=== PATIENT | female | born 1980 | race American Indian/Alaskan Native ===

== ENCOUNTER 2016-08-30 07:55 | Inpatient (IN) | payer MEDICAID ==
[2016-08-30 08:59] LABS: Basophils % (Auto) 0.5 % (0.0-1.8); Eosinophils % (Auto) 5.3 % (0.0-4.3); Hematocrit 36.3 % (30.3-42.9); Hemoglobin 12.3 gm/dl (10.1-14.3); Mean Corpuscular HGB Conc 34 % (30-34); Mean Corpuscular Hemoglobin 31 pg (28-32); Mean Corpuscular Volume 93 fl (79-97); Platelet Count 275 K/mm3 (140-440); Red Blood Count 3.92 M/mm3 (3.65-5.03); Red Cell Distribution Width 13.6 % (13.2-15.2); White Blood Count 10.2 K/mm3 (4.5-11.0)
--- NOTE | 2016-08-30 09:53 | Emergency Department Report ---
ED Shortness of Breath HPI - General Chief Complaint: Dyspnea/Respdistress Stated Complaint: CHEST PAIN/COLD/ Time Seen by Provider: 08/30/16 09:09 Source: patient Mode of arrival: Ambulatory Limitations: No Limitations - History of Present Illness Initial Comments: 35-year-old -[place] female presents to the emergency department complaining of shortness of breath. Patient states that she had a section approximately one week ago. For the past 2-3 days, she has been complaining of chest congestion and shortness of breath. She reports a nonproductive cough. Patient states that the swelling in her legs has not gone away since delivering the baby. There are no other complaints. MD Complaint: shortness of breath, cough -: Gradual, days(s) (3) Severity: mild Consistency: constant Improves With: oxygen Worsens With: nothing Associated Symptoms: denies other symptoms Treatments Prior to Arrival: none - Related Data Home Oxygen Therapy: No Home Medications Medication Instructions Recorded Confirmed Last Taken Vit-Fe Fumar-FA [ 1 tab PO QDAY 08/20/16 08/30/16 Unknown Vitamin] Previous Rx's Medication Instructions Recorded Last Taken Type Ibuprofen [Motrin 800 MG tab] 800 mg PO TID PRN #30 tablet 08/20/16 Unknown Rx oxyCODONE /ACETAMINOPHEN [Percocet 1 - 2 tab PO Q4HR PRN #30 tablet 08/20/16 Unknown Rx 5/325 mg] Allergies Allergy/AdvReac Type Severity Reaction Status Date / Time No Known Allergies Allergy Verified 08/13/16 19:22 ED Review of Systems ROS: Stated complaint: CHEST PAIN/COLD/ Other details as noted in HPI Comment: All other systems reviewed and negative Respiratory: cough, shortness of breath Cardiovascular: edema ED Past Medical Hx - Past Medical History Previous Medical History?: No Hx Hypertension: No Hx Congestive Heart Failure: No Hx Diabetes: No Hx Deep Vein Thrombosis: No Hx Renal Disease: No Hx Sickle Cell Disease: No Hx Seizures: No Hx Asthma: No Hx COPD: No Hx HIV: No - Surgical History Past Surgical History?: Yes Additional Surgical History: 08-20-16 - Family History Family history: no significant - Social History Smoking Status: Never Smoker Substance Use Type: Non Opiate Pain, Prescribed - Medications Home Medications: Home Medications Medication Instructions Recorded Confirmed Last Taken Type Ibuprofen [Motrin 800 MG tab] 800 mg PO TID PRN #30 tablet 08/20/16 08/30/16 Unknown Rx Vit-Fe Fumar-FA [ 1 tab PO QDAY 08/20/16 08/30/16 Unknown History Vitamin] oxyCODONE /ACETAMINOPHEN [Percocet 1 - 2 tab PO Q4HR PRN #30 tablet 08/20/16 Unknown Rx 5/325 mg] ED Physical Exam - General Limitations: No Limitations General appearance: alert, in no apparent distress - Head Head exam: Present: atraumatic, normocephalic - Eye Eye exam: Present: normal appearance, PERRL, EOMI - ENT ENT exam: Present: normal exam, normal orophraynx, mucous membranes moist - Neck Neck exam: Present: normal inspection, full ROM. Absent: tenderness - Respiratory Respiratory exam: Present: rales (bilateral posterior diffuse). Absent: respiratory distress - Cardiovascular Cardiovascular Exam: Present: regular rate, normal rhythm, normal heart sounds - GI/Abdominal GI/Abdominal exam: Present: soft, normal bowel sounds. Absent: distended, tenderness - Extremities Exam Extremities exam: Present: full ROM, other (bilateral 2+ nonpitting edema). Absent: tenderness - Back Exam Back exam: Present: normal inspection, full ROM. Absent: tenderness - Neurological Exam Neurological exam: Present: alert, oriented X3. Absent: motor sensory deficit - Skin Skin exam: Present: warm, dry, intact ED Course Vital Signs 08/30/16 08/30/16 08/30/16 08:23 09:56 09:57 Temperature 98.6 F 98.4 F Pulse Rate 67 60 Respiratory 24 24 Rate Blood Pressure 159/100 Blood Pressure 168/93 [Left] O2 Sat by Pulse 94 93 93 Oximetry 08/30/16 10:00 Temperature Pulse Rate 78 Respiratory 33 H Rate Blood Pressure Blood Pressure 169/101 [Left] O2 Sat by Pulse 95 Oximetry ED Medical Decision Making - Lab Data Result diagrams: 08/30/16 08:43 08/30/16 08:43 - EKG Data -: EKG Interpreted by Nc EKG shows normal: sinus rhythm, intervals, QRS complexes, ST-T waves Rate: normal - EKG Data When compared to previous EKG there are: previous EKG unavailable Interpretation: other (left axis deviation, no acute ischemic changes) - Radiology Data Radiology results: image reviewed interpreted by me: PA and lateral chest x-ray revealed bilateral patchy infiltrates consistent with pulmonary edema - Medical Decision Making Lab and imaging results reviewed and discussed with the patient. Patient remains tachypneic. I have spoken with Jeri Evans with [facility]. Patient is to be admitted by the hospitalist. - Differential Diagnosis URI, pneumonia, cardiomyopathy, PE Critical care attestation.: If time is entered above; I have spent that time in minutes in the direct care of this critically ill patient, excluding procedure time. ED Disposition Clinical Impression: cardiomyopathy Disposition: OP ADMITTED IP TO THIS HOSP Is pt being admited?: Yes Condition: Stable Time of Disposition: 11:11
[2016-08-30 09:59] LABS: Anion Gap 20 mmol/L; BUN/Creatinine Ratio 14.44; Blood Urea Nitrogen 13 mg/dL (7-17); Calcium 8.4 mg/dL (8.4-10.2); Carbon Dioxide 23 mmol/L (22-30); Glucose 99 mg/dL (65-100); Potassium 3.7 mmol/L (3.6-5.0); Sodium 144 mmol/L (137-145)
[2016-08-30 10:16] LABS: Bacteria,Urine 1+ /HPF (Negative); Bilirubin,Urine NEG (Negative); Blood,Urine LG (Negative); Ketones,Urine 80 mg/dL (Negative); Leukocyte Esterase,Urine TR (Negative); Mucus,Urine FEW /HPF; Nitrite,Urine NEG (Negative)
--- NOTE | 2016-08-30 10:50 | XRay Report ---
CHEST 2 VIEWS: INDICATION: Shortness of breath. COMPARISON: None similar. FINDINGS: PA and lateral chest radiographs, 4 images, demonstrate increased bronchovascular markings and airspace opacities in the mid to lower lung zones, greatest at the right lung base, suspicious for alveolar edema. No large pleural effusions. Right heart border partly obscured. Grossly normal remainder cardiomediastinal silhouette. Unremarkable bones. CONCLUSION: Bilateral pulmonary infiltrates, suspicious for CHF/pulmonary edema with greatest opacification at the right lung base, as described. Please also correlate clinically and with prior chest imaging, if available. Thank you for the opportunity to participate in this patient's care.
[2016-08-30] MEDS ORDERED: MOTRIN PO PRN (11:29)
[2016-08-30] MEDS ORDERED: DULCOLAX PR PRN (11:30)
[2016-08-30] MEDS ORDERED: TYLENOL PO PRN (11:30)
[2016-08-30] MEDS ORDERED: MILK OF MAGNESIA PO PRN (11:30)
[2016-08-30] MEDS ORDERED: ZOFRAN IV PRN (11:30)
--- NOTE | 2016-08-30 11:39 | History and Physical Report ---
History of Present Illness Chief complaint: sob History of present illness: 35F who delivered a child via C section a week ago who presents with 7 days of pedal edema, 4 days of progressive sob in form of NICHOLS and orthopnea. she denies CP, she realized it was a problem with Pedal edema did not clear up shortly after delivery, at this point, she gets winded with minimal exertion Past History Past Medical History: other (Remote hx of Hep B, ) Past Surgical History: (x3), Other (umbilical hernia repair) Social history: no significant social history Family history: no significant family history Medications and Allergies Allergies Allergy/AdvReac Type Severity Reaction Status Date / Time No Known Allergies Allergy Verified 08/13/16 19:22 Home Medications Medication Instructions Recorded Confirmed Last Taken Type Ibuprofen [Motrin 800 MG tab] 800 mg PO TID PRN #30 tablet 08/20/16 08/30/16 Unknown Rx Vit-Fe Fumar-FA [ 1 tab PO QDAY 08/20/16 08/30/16 Unknown History Vitamin] oxyCODONE /ACETAMINOPHEN [Percocet 1 - 2 tab PO Q4HR PRN #30 tablet 08/20/16 Unknown Rx 5/325 mg] Active Meds: Active Medications Acetaminophen (Tylenol) 650 mg PO Q4H PRN PRN Reason: Pain MILD(1-3)/Fever >100.5/DE LEON Bisacodyl (Dulcolax) 10 mg [place] QDAY PRN PRN Reason: Constipation unrelieved by MOM Furosemide (Lasix) 40 mg IV BID@0600,1800 ASCENCION Ibuprofen (Motrin) 800 mg PO TID PRN PRN Reason: Pain Magnesium Hydroxide (Milk Of Magnesia) 30 ml PO Q4H PRN PRN Reason: Constipation Nifedipine (Procardia Xl) 30 mg PO Q24H ASCENCION Review of Systems All systems: negative Constitutional: fatigue Cardiovascular: orthopnea, edema, shortness of breath, dyspnea on exertion, paroxysmal nocturnal dyspnea, leg edema, no chest pain, no palpitations, no rapid/irregular heart beat, no syncope, no lightheadedness Exam - Constitutional Vitals: Temp Pulse Resp BP Pulse Ox 98.4 F 78 33 H 169/101 95 08/30/16 09:56 08/30/16 10:00 08/30/16 10:00 08/30/16 10:00 08/30/16 10:00 General appearance: Present: no acute distress, well-nourished - EENT Eyes: Present: PERRL ENT: hearing intact, clear oral mucosa - Neck Neck: Present: supple, normal ROM - Respiratory Respiratory effort: normal Respiratory: bilateral: rales (bases) - Cardiovascular Heart Sounds: Present: S1 & S2. Absent: rub, click - Extremities Extremities: pulses symmetrical Extremity abnormal: edema (3+ bipedal edema) Peripheral Pulses: within normal limits - Abdominal General gastrointestinal: Present: soft, non-tender, non-distended, normal bowel sounds Female genitourinary: Present: normal - Integumentary Integumentary: Present: clear, warm, dry - Musculoskeletal Musculoskeletal: gait normal, strength equal bilaterally - Psychiatric Psychiatric: appropriate mood/affect, intact judgment & insight - Neurologic Neurologic: CNII-XII intact, moves all extremities Results - Labs CBC & Chem 7: 08/30/16 08:43 08/31/16 07:05 Labs: Laboratory Last Values WBC 10.2 K/mm3 (4.5-11.0) 08/30/16 08:43 RBC 3.92 M/mm3 (3.65-5.03) 08/30/16 08:43 Hgb 12.3 gm/dl (10.1-14.3) 08/30/16 08:43 Hct 36.3 % (30.3-42.9) 08/30/16 08:43 MCV 93 fl (79-97) 08/30/16 08:43 MCH 31 pg (28-32) 08/30/16 08:43 MCHC 34 % (30-34) 08/30/16 08:43 RDW 13.6 % (13.2-15.2) 08/30/16 08:43 Plt Count 275 K/mm3 (140-440) 08/30/16 08:43 Lymph % (Auto) 12.2 % (13.4-35.0) L 08/30/16 08:43 [place] % (Auto) 4.4 % (0.0-7.3) 08/30/16 08:43 Eos % (Auto) 5.3 % (0.0-4.3) H 08/30/16 08:43 Baso % (Auto) 0.5 % (0.0-1.8) 08/30/16 08:43 Lymph # 1.2 K/mm3 (1.2-5.4) 08/30/16 08:43 [place] # 0.4 K/mm3 (0.0-0.8) 08/30/16 08:43 Eos # 0.5 K/mm3 (0.0-0.4) H 08/30/16 08:43 Baso # 0.0 K/mm3 (0.0-0.1) 08/30/16 08:43 Seg Neutrophils % 77.6 % (40.0-70.0) H 08/30/16 08:43 Seg Neutrophils # 7.9 K/mm3 (1.8-7.7) H 08/30/16 08:43 D-Dimer 1974.70 ng/mlDDU (0-234) H 08/30/16 09:26 Sodium 144 mmol/L (137-145) 08/30/16 08:43 Potassium 3.7 mmol/L (3.6-5.0) 08/30/16 08:43 Chloride 105.0 mmol/L (98-107) 08/30/16 08:43 Carbon Dioxide 23 mmol/L (22-30) 08/30/16 08:43 Anion Gap 20 mmol/L 08/30/16 08:43 BUN 13 mg/dL (7-17) 08/30/16 08:43 Creatinine 0.9 mg/dL (0.7-1.2) 08/30/16 08:43 Estimated GFR > 60 ml/min 08/30/16 08:43 BUN/Creatinine Ratio 14.44 % 08/30/16 08:43 Glucose 99 mg/dL (65-100) 08/30/16 08:43 Calcium 8.4 mg/dL (8.4-10.2) 08/30/16 08:43 Troponin T < 0.010 ng/mL (0.00-0.029) 08/30/16 08:43 NT-Pro-B Natriuret Pep 1140 pg/mL (0-450) H 08/30/16 09:26 Urine Color Yellow (Yellow) 08/30/16 09:48 Urine Turbidity Clear (Clear) 08/30/16 09:48 Urine pH 5.0 (5.0-7.0) 12/28/16 09:48 Ur Specific Bone Gap 1.020 (1.003-1.030) 08/30/16 09:48 Urine Protein 100 mg/dl mg/dL (Negative) 08/30/16 09:48 Urine Glucose (UA) Neg mg/dL (Negative) 08/30/16 09:48 Urine Ketones 80 mg/dL (Negative) 08/30/16 09:48 Urine Blood Lg (Negative) 08/30/16 09:48 Urine Nitrite Neg (Negative) 08/30/16 09:48 Urine Bilirubin Neg (Negative) 08/30/16 09:48 Urine Urobilinogen 4.0 mg/dL (<2.0) 08/30/16 09:48 Ur Leukocyte Esterase Tr (Negative) 08/30/16 09:48 Urine WBC (Auto) 31.0 /HPF (0.0-6.0) H 08/30/16 09:48 Urine RBC (Auto) 77.0 /HPF (0.0-6.0) 08/30/16 09:48 U Epithel Cells (Auto) 10.0 /HPF (0-13.0) 08/30/16 09:48 Urine Bacteria (Auto) 1+ /HPF (Negative) 08/30/16 09:48 Urine Mucus Few /HPF 08/30/16 09:48 - Imaging and Cardiology Chest x-ray: image reviewed (pulmonary edema bilaterally) Assessment and Plan Assessment and plan: 1. post Cardiomyopathy Admit to tele, strict Is and Os, daily weights obtain echo, cardiology consult IV diuresis 2. Accelerated htn optimize meds, no plans to breast feed, will need BRANDON-I and Beta aravind 3. DVT ppx lovenox
--- NOTE | 2016-08-30 11:43 | Admit Criteria Form ---
Admission Criteria Documentation: OBSTETRIC AND GYNECOLOGIC DISEASE GRG Clinical Indications for Admission to Inpatient Care (Place 'X' for any and all applicable criteria): Hospital admission is needed for appropriate care of the patient because of ANY ONE of the following (1)(2)(3): [ ]I. Hemodynamic instability, as indicated by ALL of the following (1)(2)(3)( 4)(5): [ ]a) Vital signs or other findings not as expected for chronic patient condition or baseline [ ]b) Instability indicated by ANY ONE of the following: [ ]i) Hypotension [ ]ii) Symptomatic tachycardia unresponsive to treatment (eg, analgesia, fluids, sedation as indicated) [ ]iii) Inadequate perfusion indicated by ANY ONE of the following: [ ]A. Lactic acidosis (greater than 2 mmol/ L) [ ]B. New abnormal capillary refill ( greater than 3 seconds) [ ]C. Reduced urine output [ ]D. New altered mental status [ ]iv) Orthostatic vital sign changes unresponsive to treatment (eg, fluids) [ ]v) Multiple IV fluid boluses required to maintain adequate blood pressure or perfusion [ ]vi) IV inotropic or vasopressor medication required to maintain adequate blood pressure or perfusion [ ]II. Obstetric infection requiring hospitalization indicated by ANY ONE of the following(13)(14): [ ]a) Chorioamnionitis [ ]b) Endometritis (except mild endometritis) [ ]c) Pelvic abscess [ ]d) Peritonitis [ ]e) Septic pelvic thrombophlebitis [ ]III. Amniotic fluid or pulmonary embolism(4)(5)(6) [ ]IV. Suspected peritonitis or ectopic requiring monitoring beyond scope of 24 hours or observation care(7)(8) [ ]V. compromise requiring hospitalization indicated by ALL of the following(9)(10): [ ]a) compromise indicated by ANY ONE of the following(11): [ ]i) Abnormal heart rate monitoring [ ]ii) Abnormal contraction stress test [ ]iii) Abnormal biophysical profile [ ]iv) Abnormal Doppler flow in vessels (ie, Doppler velocimetry) (12) [ ]b) Persistence of compromise indicators during evaluation and observation monitoring [ ]. Ovarian hyperstimulation syndrome requiring hospitalization[A] indicated by ALL of the following(15): [ ]a) Recent ovarian stimulation with gonadotropins, or evidence on ultrasound of spontaneous emergence of large number of ovarian follicles [ ]b) Evidence of severe ovarian hyperstimulation syndrome indicated by ANY ONE of the following: [ ]i) Abdominal pain unresponsive to oral therapy [ ]ii) Acute respiratory distress syndrome [ ]iii) Electrolyte imbalance ( eg, hyponatremia, hyperkalemia) [ ]iv) Elevated liver enzymes [ ]v) Evidence of thromboembolism [ ]vi) Hemoconcentration (hematocrit greater than 45 % (0.45)) [ ]vii) Inability to maintain oral intake adequate to prevent hemoconcentration [ ]viii) Marked hypotension from baseline (eg, SBP 20 mmHg below patients usual pressure) [ ]ix) Oliguria or anuria [ ]x) Ovarian torsion [ ]xi) Pleural or pericardial effusion on x-ray or echocardiogram [ ]xii) Rapid increase in serum creatinine to greater than 1.2 mg/dL (106 micromoles/L) or creatinine clearance less than 50 mL/min/1.73m2 (0.84 mL/ sec/1.73m2) [ ]xiii) Ruptured ovarian cyst with hemorrhage [ ]xiv) Severe abdominal pain or peritoneal signs [ ]xv) Tense ascites that cannot be managed with paracentesis in outpatient setting [ ]VII.Pelvic infection requiring hospitalization indicated by ANY ONE of the following (16): [ ]a) Outpatient treatment has failed or is not appropriate (eg, inpatient monitoring required) [ ]b) Pelvic abscess [ ]c) Surgical emergency cannot be excluded (eg, rigid abdomen) [ ]d) Vomiting precluding outpatient and observation care management VIII. loss complications requiring inpatient medical treatment indicated by ANY ONE of the following (4)(7)(9): [ ]a) Fever [ ]b) Peritonitis [ ]c) Sepsis [ ]d) Severe abdominal pain [X ]IX. or patient requiring monitoring for severe heart failure, pulmonary disease, or other comorbid condition (eg, peripartum cardiomyopathy) (4)(17) [ ]X. patient with rupture of membranes requiring hospitalization indicated by ANY ONE of the following: [ ]a) Chorioamnionitis, cloudy amniotic fluid, or other evidence of infection [ ]b) compromise or other need for monitoring (11) [ ]c) Gestation longer than 23 weeks and ANY ONE of the following: [ ]i) Abnormal (noncephalic) presentation [ ]ii) Inadequate home environment (eg, home too far from hospital, unable to rapidly return to hospital) [ ]d) Temperature greater than 100.4 degrees F (38 degrees C)( oral) [ ]e) Threatened labor requiring monitoring beyond scope (eg, over 24 hours) of observation Care [ ] XI. complications, including severe lacerations, infections, or retained placenta (19) [ ] XII.Uterine bleeding with high-risk features indicated by ANY ONE of the following (4): [ ]a) Active major hemorrhage (eg, hemorrhage) [ ]b) Coagulopathy with active bleeding [ ]c) Gestational trophoblastic disease (eg, molar ) (20 ) [ ]d) (longer than 23 weeks) and ANY ONE of the following: [ ]i) Pain [ ]ii) Placental abruption, known or suspected [ ]iii) Placenta accrete, known or suspected(21) [ ]iv) Placenta previa, known or suspected [ ]v) Vasa previa [ ]e) Severe anemia [ ]XIII. Obstetric or Gynecologic Disease, condition or symptom for which ANY ONE of the following: [ ]a) Emergency and observation care have failed or are not considered appropriate ( Also use General Criteria: Observation Care Criteria as appropriate) [ ]b) Presence of a General Admission Criteria or Pediatric General Admission Criteria The original [facility] [employer] content created by [facility] [employer] has been revised. The portions of the content which have been revised are identified through the use of italic text or in bold, and [facility] has neither reviewed nor approved the modified material.All other unmodified content is copyright [facility]. Please see references footnoted in the original [facility] edition 2016 Admission Criteria Met: Yes
[2016-08-30] MEDS: PROCARDIA XL PO SCH (12:25)
--- NOTE | 2016-08-30 12:56 | Consultation ---
History of Present Illness Consult date: 08/30/16 Consult reason: congestive heart failure History of present illness: This is a 35yr old female whom is status post section a week ago. She denies any complications during her . She has no prior medical history. She presented to the ED with complaints of shortness of breath since discharge. She associates shortness of breath with lower extremity edema and chest congestion. She denies chest pain. ECG is normal. A chest xray reports pulmonary edema. Also noted elevated d-dimer on laboratory values. Admission requested. Cardiac consultation requested for CHF. Past History Past Medical History: other (Remote hx of Hep B, ) Past Surgical History: (x3), Other (umbilical hernia repair) Social history: no significant social history Family history: no significant family history Medications and Allergies Allergies Allergy/AdvReac Type Severity Reaction Status Date / Time No Known Allergies Allergy Verified 08/13/16 19:22 Home Medications Medication Instructions Recorded Confirmed Last Taken Type Ibuprofen [Motrin 800 MG tab] 800 mg PO TID PRN #30 tablet 08/20/16 08/30/16 Unknown Rx Vit-Fe Fumar-FA [ 1 tab PO QDAY 08/20/16 08/30/16 Unknown History Vitamin] oxyCODONE /ACETAMINOPHEN [Percocet 1 - 2 tab PO Q4HR PRN #30 tablet 08/20/16 Unknown Rx 5/325 mg] Active Meds: Active Medications Acetaminophen (Tylenol) 650 mg PO Q4H PRN PRN Reason: Pain MILD(1-3)/Fever >100.5/DE LEON Bisacodyl (Dulcolax) 10 mg [place] QDAY PRN PRN Reason: Constipation unrelieved by MOM Enoxaparin Sodium (Lovenox) 40 mg SUB-Q DAILY ASCENCION Furosemide (Lasix) 40 mg IV BID@0600,1800 ASCENCION Ibuprofen (Motrin) 800 mg PO TID PRN PRN Reason: Pain Magnesium Hydroxide (Milk Of Magnesia) 30 ml PO Q4H PRN PRN Reason: Constipation Multivitamins/Iron/Calcium ( Vitamin) 1 each PO QDAY ASCENCION Nifedipine (Procardia Xl) 30 mg PO Q24H ASCENCION Last Admin: 08/30/16 12:25 Dose: 30 mg Ondansetron HCl (Zofran) 4 mg IV Q8H PRN PRN Reason: N/V unrelieved by Reglan Oxycodone/Acetaminophen (Percocet 5/325) 1 tab PO Q4HR PRN PRN Reason: Pain Physical Examination Vital Signs BP Pulse Ox 115/80 94 08/30/16 05:28 08/30/16 05:28 General appearance: no acute distress HEENT: Positive: PERRL Neck: Positive: trachea midline Cardiac: Positive: Reg Rate and Rhythm Lungs: Positive: Decreased Breath Sounds Neuro: Positive: Grossly Intact Extremities: Present: +1 Edema Results 08/30/16 08:43 08/30/16 08:43 EKG interpretations - Telemetry EKG Rhythm: Sinus Rhythm Assessment and Plan CHF Elevated D-dimer s/p recent no plans for breast feeding Continue current management. Will get an echo for LVEF assessment
[2016-08-30] MEDS: LASIX IV SCH (17:56)
[2016-08-30] MEDS: PERCOCET 5/325 PO PRN (18:40)
[2016-08-31] MEDS: LASIX IV SCH ×2 (05:55→18:25)
[2016-08-31] MEDS: PERCOCET 5/325 PO PRN ×2 (06:01→21:20)
[2016-08-31 07:38] LABS: Anion Gap 21 mmol/L; BUN/Creatinine Ratio 13.75; Blood Urea Nitrogen 11 mg/dL (7-17); Calcium 8.6 mg/dL (8.4-10.2); Carbon Dioxide 25 mmol/L (22-30); Chloride 97.5 mmol/L (98-107); Glucose 87 mg/dL (65-100); Potassium 3.2 mmol/L (3.6-5.0); Sodium 140 mmol/L (137-145)
[2016-08-31] MEDS: LOVENOX SUB-Q SCH (10:43)
[2016-08-31] MEDS: PRENATAL VITAMIN PO SCH (11:30)
[2016-08-31] MEDS: PROCARDIA XL PO SCH (11:30)
--- NOTE | 2016-08-31 15:21 | Progress Note ---
Addendum entered and electronically signed by FELIPE FLOR MD 08/31/16 17:03 : The patient's chest x-ray shows bilateral fluffy infiltrates, uncertain if this is pulmonary edema versus bilateral pneumonia. In addition to an echocardiogram for left ventricular function assessment, will recommend pulmonary assessment. Original Note: Assessment and Plan CHF vs Pneumonia Elevated D-dimer s/p recent no plans for breast feeding Echo results pending Continue current management. Pulmonary consultation for possible pneumonia on cxr. Subjective Date of service: 08/31/16 Interval history: Patient reports her shortness of breath is less. Objective Vital Signs Temp Pulse Pulse Resp Resp BP BP 08/31/16 12:54 97.8 F 95 H 18 134/84 08/31/16 10:19 98 H 08/31/16 09:03 97.7 F 104 H 20 118/73 08/31/16 05:53 98.3 F 107 H 20 145/83 08/31/16 01:54 98.3 F 92 H 20 129/76 08/30/16 22:00 85 20 08/30/16 21:40 08/30/16 21:16 98.0 F 88 20 124/72 08/30/16 21:01 18 08/30/16 19:02 84 08/30/16 16:46 82 32 H 151/92 08/30/16 16:30 90 28 H 151/92 08/30/16 16:22 78 31 H 151/92 08/30/16 16:16 84 36 H 151/92 08/30/16 16:00 70 28 H 151/92 08/30/16 15:46 71 32 H 145/90 08/30/16 15:30 75 33 H 145/90 Pulse Ox 08/31/16 12:54 97 08/31/16 10:19 08/31/16 09:03 95 08/31/16 05:53 94 08/31/16 01:54 92 08/30/16 22:00 08/30/16 21:40 95 08/30/16 21:16 95 08/30/16 21:01 08/30/16 19:02 08/30/16 16:46 92 08/30/16 16:30 93 08/30/16 16:22 94 08/30/16 16:16 95 08/30/16 16:00 95 08/30/16 15:46 97 08/30/16 15:30 96 - Physical Examination General: No Apparent Distress HEENT: Positive: PERRL Neck: Positive: trachea midline Cardiac: Positive: Reg Rate and Rhythm Lungs: Positive: Decreased Breath Sounds Neuro: Positive: Grossly Intact Extremities: Present: +1 Edema - Labs and Meds Comprehensive Metabolic Panel 08/31/16 Range/Units 07:05 Sodium 140 (137-145) mmol/L Potassium 3.2 L (3.6-5.0) mmol/L Chloride 97.5 L (98-107) mmol/L Carbon Dioxide 25 (22-30) mmol/L BUN 11 (7-17) mg/dL Creatinine 0.8 (0.7-1.2) mg/dL Glucose 87 (65-100) mg/dL Calcium 8.6 (8.4-10.2) mg/dL
--- NOTE | 2016-08-31 16:59 | Consultation ---
History of Present Illness Consult date: 08/31/16 History of present illness: 35F A0, who recently delivered child via C section 1-2week ago admitted to the hospital with 7 days of pedal edema, PND,4 days of progressive sob in form of NICHOLS and orthopnea. She also admits to bilateral lower extremity edema, noted also for the past week. She denies any fever or chills, flulike symptoms. She became more concerned after persistent cough with what appears to be clear expectoration in the past few days. No history of chest pain or hemoptysis. She did report some vomiting 2 or 3 times just before being referred to the hospital and had been taking some ibuprofen and oxycodone medication for pain after her . No prior history of cardiac problems. No other sick at home with flulike illness. The child appeared to be in good health. No recent travel. Imaging chest x-rays were consistent with pulmonary infiltrates suspicious for congestive heart failure, pulmonary edema. Past History Past Medical History: other (Remote hx of Hep B, ) Past Surgical History: (x3), Other (umbilical hernia repair) Social history: no significant social history. denies: alcohol abuse, prescription drug abuse, IV drug use Family history: no significant family history Medications and Allergies Allergies Allergy/AdvReac Type Severity Reaction Status Date / Time No Known Allergies Allergy Verified 08/13/16 19:22 Home Medications Medication Instructions Recorded Confirmed Last Taken Type Ibuprofen [Motrin 800 MG tab] 800 mg PO TID PRN #30 tablet 08/20/16 08/30/16 Unknown Rx Vit-Fe Fumar-FA [ 1 tab PO QDAY 08/20/16 08/30/16 Unknown History Vitamin] oxyCODONE /ACETAMINOPHEN [Percocet 1 - 2 tab PO Q4HR PRN #30 tablet 08/20/16 Unknown Rx 5/325 mg] Active Meds: Active Medications Acetaminophen (Tylenol) 650 mg PO Q4H PRN PRN Reason: Pain MILD(1-3)/Fever >100.5/DE LEON Bisacodyl (Dulcolax) 10 mg MO QDAY PRN PRN Reason: Constipation unrelieved by MOM Enoxaparin Sodium (Lovenox) 40 mg SUB-Q DAILY ASCENCION Last Admin: 08/31/16 10:43 Dose: 40 mg Furosemide (Lasix) 40 mg IV BID@0600,1800 [facility] Last Admin: 08/31/16 05:55 Dose: 40 mg Ibuprofen (Motrin) 800 mg PO TID PRN PRN Reason: Pain Last Admin: 08/30/16 18:15 Dose: 800 mg Magnesium Hydroxide (Milk Of Magnesia) 30 ml PO Q4H PRN PRN Reason: Constipation Multivitamins/Iron/Calcium ( Vitamin) 1 each PO QDAY [facility] Last Admin: 08/31/16 11:30 Dose: 1 each Nifedipine (Procardia Xl) 30 mg PO Q24H [facility] Last Admin: 08/31/16 11:30 Dose: 30 mg Ondansetron HCl (Zofran) 4 mg IV Q8H PRN PRN Reason: N/V unrelieved by Reglan Oxycodone/Acetaminophen (Percocet 5/325) 1 tab PO Q4HR PRN PRN Reason: Pain Last Admin: 08/31/16 06:01 Dose: 1 tab Review of Systems Constitutional: weight gain Ears, nose, mouth and throat: deferred Cardiovascular: orthopnea, palpitations, edema, shortness of breath, dyspnea on exertion, paroxysmal nocturnal dyspnea, leg edema, no chest pain, no syncope Respiratory: cough with sputum, dyspnea on exertion, congestion, no hemoptysis, no wheezing, no pleurisy, no pain, no pain on inspiration, no sleep apnea Gastrointestinal: no abdominal pain, no nausea, no vomiting, no diarrhea, no constipation, no change in bowel habits, no hematemesis, no melena, no hematochezia Neurological: no head injury, no paralysis, no weakness, no numbness, no syncope , no headaches, no migraines Physical Examination Vital signs: Vital Signs BP Pulse Ox 115/80 94 08/30/16 05:28 08/30/16 05:28 General appearance: no acute distress, alert Eyes: non-icteric ENT: oropharynx moist, other (Mallampati 3) Neck: supple Effort: normal Ascultation: Bilateral: rales (bilateral lower bases no wheezes occasional anterior crackles) Cardiovascular: regular rate and rhythm, other (no murmur) Gastrointestinal: normoactive bowel sounds, non-distended Extremities: edema (+3 bilateral Homans is negative bilaterally) normal mental status, non-focal exam mood appropriate, affect normal Results - Laboratory Findings CBC and BMP: 08/30/16 08:43 08/31/16 07:05 PT/INR, D-dimer D-Dimer 1974.70 ng/mlDDU (0-234) H 08/30/16 09:26 Abnormal lab findings: Abnormal Labs 08/31/16 07:05 Potassium 3.2 L Chloride 97.5 L Assessment and Plan Acute pulmonary edema. Improving cardiomyopathy. Additional consideration based on the patient's history will be, aspiration pneumonitis and if she had been using narcotics recently, narcotic related non-cardiogenic edema. I doubt influenza pneumonia at this point Puerperal pt Recommendations: Gentle diuretics Nasal cannula oxygen 2 L I will order bilateral lower estimated Doppler as a precaution but, I believe the d-dimer might be related to recent surgery Get echocardiogram report Follow-up on cardiology recommendations DVT prophylaxis Monitor for vomiting and maintain aspiration precautions Thanks for consultation. Discussed with patient in detail. Critical care time was 31 minutes
--- NOTE | 2016-08-31 17:51 | Echocardiography Report ---
Transthoracic Echocardiogram Indication: Heart failure BP: 145/83 Findings Left Ventricle: The left ventricular chamber size is normal. Moderate concentric left ventricular hypertrophy is observed. Global left ventricular wall motion and contractility are within normal limits. Global left ventricular systolic function is normal. The estimated ejection fraction is 55-60%. Abnormal left ventricular diastolic filling is observed, consistent with impaired relaxation. Left Atrium: The left atrial chamber size is normal. Right Ventricle: The right ventricular cavity size is normal. The right ventricular global systolic function is normal. Right Atrium: The right atrial cavity size is normal. The interatrial septum appears normal. Aortic Valve: The aortic valve is trileaflet. There is no evidence of aortic valve thickening. There is no evidence of aortic regurgitation. There is no evidence of aortic stenosis. Mitral Valve: The mitral valve leaflets appear myxomatous. The mitral valve leaflets are mildly thickened. There is trace of mitral regurgitation. There is no evidence of mitral stenosis. Tricuspid Valve: The tricuspid valve leaflets are normal. There is trace tricuspid regurgitation. The right ventricular systolic pressure is calculated at 16 mmHg. No pulmonary hypertension is noted. There is no tricuspid stenosis. Pulmonic Valve: The pulmonic valve appears normal. There is trace pulmonic regurgitation. There is no pulmonic stenosis. Pericardium: There is no pericardial effusion. Aorta: There is no dilatation of the aortic root. Venous: The inferior vena cava appears normal in size. Measurements Chambers MM Name Value Normal Range Ao root diameter (MM) 3.1 cm (2 - 3.7) LA dimension (AP) MM 3 cm (1.9 - 4) LA:Ao ratio (MM) 0.97 ratio - AV cusp separation (MM) 1.9 cm (1.5 - 2.6) Chambers 2D Name Value Normal Range RVIDd (AP) 2D 3.37 cm (0.9 - 2.6) IVSd (2D) 1.53 cm (0.6 - 1.1) LVPWd (2D) 1.5 cm (0.6 - 1.1) IVS:LVPW ratio (2D) 1.02 ratio - LVIDd (2D) 4.03 cm (3.7 - 5.6) LVIDs (2D) 2.81 cm (2 - 3.8) LV FS (Teichholz) (2D) 30.3 % - LV FS (cube) (2D) 30.3 % - EF Teichholz (2D) 58.2 % - LA dimension (AP) 2D 3.2 cm (1.9 - 4) Volumes/Mass Name Value Normal Range LA ESV SP 4CH (MOD) 32 ml - LA ESV SP 2CH (MOD) 36 ml - LA ESV BP (MOD) 35 ml - LA ESV BP (MOD) index 15.6 ml/m2 - LV EDV SP 4CH (MOD) 75 ml - LV ESV SP 4CH (MOD) 23 ml - EF SP 4CH (MOD) 69 % - LV EDV SP 2CH (MOD) 51 ml - LV ESV SP 2CH (MOD) 21 ml - EF SP 2CH (MOD) 59 % - LV EDV BP 64 ml - LV ESV BP 22 ml - BP EF (MOD) 66 % - Diastolic/Systolic Function Name Value Normal Range MV E-wave Vmax 0.54 m/sec - MV deceleration time 173 msec - MV A-wave Vmax 0.72 m/sec - MV E:A ratio 0.8 ratio - LV septal e' Vmax 0.07 m/sec - LV lateral e' Vmax 0.06 m/sec - LV E:e' septal ratio 8.2 ratio - LV E:e' lateral ratio 8.5 ratio - Aortic Valve Name Value Normal Range AV VTI 20.7 cm - AV mean gradient 4 mmHg - LVOT diameter 2 cm - LVOT VTI 20.7 cm - LVOT mean gradient 3 mmHg - SV LVOT 65 ml - JOLENE (continuity VTI) 3.14 cm2 - Mitral Valve Name Value Normal Range MV PHT 49 msec - MVA (PHT) 4.49 cm2 - Tricuspid Valve Name Value Normal Range TR Vmax 1.83 m/sec - TR peak gradient 13 mmHg - RAP 3 mmHg - RVSP 16 mmHg - Pulmonic Valve/Qp:Qs Name Value Normal Range PV Vmax 1.01 m/sec - PV peak gradient 4 mmHg - CT end-diastolic Vmax 1.3 m/sec - PV acceleration time 151 msec -
[2016-09-01] MEDS: LASIX IV SCH ×2 (06:02→18:37)
[2016-09-01] MEDS: LOVENOX SUB-Q SCH ×2 (08:43→11:06)
[2016-09-01] MEDS: PERCOCET 5/325 PO PRN ×3 (08:44→18:37)
[2016-09-01] MEDS: PRENATAL VITAMIN PO SCH ×2 (08:45→11:06)
--- NOTE | 2016-09-01 09:08 | Progress Note ---
Addendum entered and electronically signed by FELIPE FLOR MD 09/01/16 14:03 : The patient as demonstrated significant clinical improvement, no longer short of breath. In addition, chest x-ray today, shows near complete resolution of her bilateral patchy infiltrates on presentation 2 days ago. Quick resolution will suggest diagnosis of acute pulmonary edema. Echocardiogram shows well-preserved left ventricle systolic function, ejection fraction 55%. On this presentation, small systolic blood pressure has been 160- 170. It is therefore unclear if the pulmonary edema was cardiogenic or otherwise. Recommendations: Continued treatment with diuretics, and optimal blood pressure management. We'll get a thallium stress test tomorrow morning for ischemic assessment. It is already noted that the patient does not plan breast feeding, and she is aware of thallium testing in the contraindication to breast feeding. Original Note: Assessment and Plan Acute Pulmonary edema Elevated D-dimer venous duplex: no evidence of DVT s/p recent no plans for breast feeding per pt Hypokalemia Hypertension Echo reports a normal LV systolic function, EF 55-60% Recommend: Potassium replacement. Continue current management. Subjective Date of service: 09/01/16 Interval history: Patient reports she is feeling better. She denies shortness of breath. Objective Vital Signs Temp Pulse Pulse Pulse Resp BP Pulse Ox 09/01/16 08:44 18 09/01/16 05:38 98.2 F 84 20 127/81 97 09/01/16 01:00 98.8 F 97 H 20 120/75 96 08/31/16 23:26 100 H 08/31/16 21:32 98.1 F 103 H 20 164/88 98 08/31/16 21:15 96 08/31/16 17:55 98.1 F 93 H 18 134/82 98 08/31/16 12:54 97.8 F 95 H 18 134/84 97 08/31/16 10:19 98 H - Physical Examination General: No Apparent Distress HEENT: Positive: PERRL Neck: Positive: trachea midline Cardiac: Positive: Reg Rate and Rhythm Lungs: Positive: Decreased Breath Sounds Neuro: Positive: Grossly Intact Extremities: Absent: edema
[2016-09-01] MEDS ORDERED: K-DUR PO ONE ×2 (11:09→14:00)
--- NOTE | 2016-09-01 11:14 | Progress Note ---
Assessment and Plan Assessment and plan: 1. post Cardiomyopathy Admit to tele, strict Is and Os, daily weights echo shows diastolic dysfunction, repeat cxr to r/o pna optimize meds 2. Accelerated htn no plans to breastfeed will switch BP meds to BRANDON and likely add Beta aravind when clinically improved 3. DVT ppx lovenox History Interval history: SOB is improved as is pedal edema Hospitalist Physical - Physical exam Narrative exam: General appearance: Present: no acute distress, well-nourished - EENT Eyes: Present: PERRL ENT: hearing intact, clear oral mucosa - Neck Neck: Present: supple, normal ROM - Respiratory bibasilar crackles - Cardiovascular Heart Sounds: Present: S1 & S2. Absent: rub, click - Extremities bipedal edema - Abdominal General gastrointestinal: Present: soft, non-tender, non-distended, normal bowel sounds Male genitourinary: Present: normal - Integumentary Integumentary: Present: clear, warm, dry - Musculoskeletal Musculoskeletal: gait normal, strength equal bilaterally - Psychiatric Psychiatric: appropriate mood/affect, intact judgment & insight - Neurologic Neurologic: CNII-XII intact, moves all extremities - Constitutional Vitals: Temp Pulse Resp BP Pulse Ox 98.3 F 103 H 18 119/75 96 09/01/16 10:10 09/01/16 10:10 09/01/16 11:06 09/01/16 10:10 09/01/16 10:10 General appearance: Present: no acute distress Results - Labs CBC & Chem 7: 08/30/16 08:43 08/31/16 07:05 Labs: Laboratory Last Values WBC 10.2 K/mm3 (4.5-11.0) 08/30/16 08:43 RBC 3.92 M/mm3 (3.65-5.03) 08/30/16 08:43 Hgb 12.3 gm/dl (10.1-14.3) 08/30/16 08:43 Hct 36.3 % (30.3-42.9) 08/30/16 08:43 MCV 93 fl (79-97) 08/30/16 08:43 MCH 31 pg (28-32) 08/30/16 08:43 MCHC 34 % (30-34) 08/30/16 08:43 RDW 13.6 % (13.2-15.2) 08/30/16 08:43 Plt Count 275 K/mm3 (140-440) 08/30/16 08:43 Lymph % (Auto) 12.2 % (13.4-35.0) L 08/30/16 08:43 [place] % (Auto) 4.4 % (0.0-7.3) 08/30/16 08:43 Eos % (Auto) 5.3 % (0.0-4.3) H 08/30/16 08:43 Baso % (Auto) 0.5 % (0.0-1.8) 08/30/16 08:43 Lymph # 1.2 K/mm3 (1.2-5.4) 08/30/16 08:43 [place] # 0.4 K/mm3 (0.0-0.8) 08/30/16 08:43 Eos # 0.5 K/mm3 (0.0-0.4) H 08/30/16 08:43 Baso # 0.0 K/mm3 (0.0-0.1) 08/30/16 08:43 Seg Neutrophils % 77.6 % (40.0-70.0) H 08/30/16 08:43 Seg Neutrophils # 7.9 K/mm3 (1.8-7.7) H 08/30/16 08:43 D-Dimer 1974.70 ng/mlDDU (0-234) H 08/30/16 09:26 Sodium 140 mmol/L (137-145) 08/31/16 07:05 Potassium 3.2 mmol/L (3.6-5.0) L 08/31/16 07:05 Chloride 97.5 mmol/L (98-107) L 08/31/16 07:05 Carbon Dioxide 25 mmol/L (22-30) 08/31/16 07:05 Anion Gap 21 mmol/L 08/31/16 07:05 BUN 11 mg/dL (7-17) 08/31/16 07:05 Creatinine 0.8 mg/dL (0.7-1.2) 08/31/16 07:05 Estimated GFR > 60 ml/min 08/31/16 07:05 BUN/Creatinine Ratio 13.75 % 08/31/16 07:05 Glucose 87 mg/dL (65-100) 08/31/16 07:05 Calcium 8.6 mg/dL (8.4-10.2) 08/31/16 07:05 Troponin T < 0.010 ng/mL (0.00-0.029) 08/30/16 08:43 NT-Pro-B Natriuret Pep 1140 pg/mL (0-450) H 08/30/16 09:26 Urine Color Yellow (Yellow) 08/30/16 09:48 Urine Turbidity Clear (Clear) 08/30/16 09:48 Urine pH 5.0 (5.0-7.0) 08/30/16 09:48 Ur Specific [place] 1.020 (1.003-1.030) 08/30/16 09:48 Urine Protein 100 mg/dl mg/dL (Negative) 08/30/16 09:48 Urine Glucose (UA) Neg mg/dL (Negative) 08/30/16 09:48 Urine Ketones 80 mg/dL (Negative) 08/30/16 09:48 Urine Blood Lg (Negative) 08/30/16 09:48 Urine Nitrite Neg (Negative) 08/30/16 09:48 Urine Bilirubin Neg (Negative) 08/30/16 09:48 Urine Urobilinogen 4.0 mg/dL (<2.0) 08/30/16 09:48 Ur Leukocyte Esterase Tr (Negative) 08/30/16 09:48 Urine WBC (Auto) 31.0 /HPF (0.0-6.0) H 08/30/16 09:48 Urine RBC (Auto) 77.0 /HPF (0.0-6.0) 08/30/16 09:48 U Epithel Cells (Auto) 10.0 /HPF (0-13.0) 08/30/16 09:48 Urine Bacteria (Auto) 1+ /HPF (Negative) 08/30/16 09:48 Urine Mucus Few /HPF 08/30/16 09:48
--- NOTE | 2016-09-01 11:15 | XRay Report ---
CHEST X-RAY, 2 VIEWS: HISTORY: Follow-up pneumonia, shortness of breath. FINDINGS: Bilateral pulmonary infiltrates or pulmonary edema have resolved since 08/30/16. I suspect this represented pulmonary edema. The lungs are clear. No pleural effusion or pneumothorax. Heart size is within normal limits. IMPRESSION: Unremarkable chest x-ray.
--- NOTE | 2016-09-01 11:18 | Progress Note ---
Assessment and Plan Assessment and plan: This is a 35-year-old woman who presented with shortness of breath and bipedal edema. She was found to have pulmonary infiltrates consistent with CHF. After a few days of diuresis repeat chest x-ray shows complete resolution of pulmonary infiltrates consistent with fluid overload. Of note echocardiogram shows preserved EF with some diastolic dysfunction. 1. post Cardiomyopathy, diastolic CHF Admit to tele, strict Is and Os, daily weights cardiology input appreciated IV diuresis, optimize meds, for stress test tomorrow 2. Accelerated htn continue BRANDON-I, beta aravind added 3. DVT ppx lovenox 4. Hypokalemia replete PO, recheck tomorrow History Interval history: SOB is improved as is pedal edema Hospitalist Physical - Physical exam Narrative exam: General appearance: Present: no acute distress, well-nourished - EENT Eyes: Present: PERRL ENT: hearing intact, clear oral mucosa - Neck Neck: Present: supple, normal ROM - Respiratory Clear to auscultation - Cardiovascular Heart Sounds: Present: S1 & S2. Absent: rub, click - Extremities 1+ bipedal edema, interval improvement - Abdominal General gastrointestinal: Present: soft, non-tender, non-distended, normal bowel sounds Male genitourinary: Present: normal - Integumentary Integumentary: Present: clear, warm, dry - Musculoskeletal Musculoskeletal: gait normal, strength equal bilaterally - Psychiatric Psychiatric: appropriate mood/affect, intact judgment & insight - Neurologic Neurologic: CNII-XII intact, moves all extremities - Constitutional Vitals: Temp Pulse Resp BP Pulse Ox 98.3 F 103 H 18 119/75 96 09/01/16 10:10 09/01/16 10:10 09/01/16 11:06 09/01/16 10:10 09/01/16 10:10 General appearance: Present: no acute distress, well-nourished Results - Labs CBC & Chem 7: 08/30/16 08:43 09/02/16 06:20 Labs: Laboratory Last Values WBC 10.2 K/mm3 (4.5-11.0) 08/30/16 08:43 RBC 3.92 M/mm3 (3.65-5.03) 08/30/16 08:43 Hgb 12.3 gm/dl (10.1-14.3) 08/30/16 08:43 Hct 36.3 % (30.3-42.9) 08/30/16 08:43 MCV 93 fl (79-97) 08/30/16 08:43 MCH 31 pg (28-32) 08/30/16 08:43 MCHC 34 % (30-34) 08/30/16 08:43 RDW 13.6 % (13.2-15.2) 08/30/16 08:43 Plt Count 275 K/mm3 (140-440) 08/30/16 08:43 Lymph % (Auto) 12.2 % (13.4-35.0) L 08/30/16 08:43 [place] % (Auto) 4.4 % (0.0-7.3) 08/30/16 08:43 Eos % (Auto) 5.3 % (0.0-4.3) H 08/30/16 08:43 Baso % (Auto) 0.5 % (0.0-1.8) 08/30/16 08:43 Lymph # 1.2 K/mm3 (1.2-5.4) 08/30/16 08:43 [place] # 0.4 K/mm3 (0.0-0.8) 08/30/16 08:43 Eos # 0.5 K/mm3 (0.0-0.4) H 08/30/16 08:43 Baso # 0.0 K/mm3 (0.0-0.1) 08/30/16 08:43 Seg Neutrophils % 77.6 % (40.0-70.0) H 08/30/16 08:43 Seg Neutrophils # 7.9 K/mm3 (1.8-7.7) H 08/30/16 08:43 D-Dimer 1974.70 ng/mlDDU (0-234) H 08/30/16 09:26 Sodium 140 mmol/L (137-145) 08/31/16 07:05 Potassium 3.2 mmol/L (3.6-5.0) L 08/31/16 07:05 Chloride 97.5 mmol/L (98-107) L 08/31/16 07:05 Carbon Dioxide 25 mmol/L (22-30) 08/31/16 07:05 Anion Gap 21 mmol/L 08/31/16 07:05 BUN 11 mg/dL (7-17) 08/31/16 07:05 Creatinine 0.8 mg/dL (0.7-1.2) 08/31/16 07:05 Estimated GFR > 60 ml/min 08/31/16 07:05 BUN/Creatinine Ratio 13.75 % 08/31/16 07:05 Glucose 87 mg/dL (65-100) 08/31/16 07:05 Calcium 8.6 mg/dL (8.4-10.2) 08/31/16 07:05 Troponin T < 0.010 ng/mL (0.00-0.029) 08/30/16 08:43 NT-Pro-B Natriuret Pep 1140 pg/mL (0-450) H 08/30/16 09:26 Urine Color Yellow (Yellow) 08/30/16 09:48 Urine Turbidity Clear (Clear) 08/30/16 09:48 Urine pH 5.0 (5.0-7.0) 08/30/16 09:48 Ur Specific [place] 1.020 (1.003-1.030) 08/30/16 09:48 Urine Protein 100 mg/dl mg/dL (Negative) 08/30/16 09:48 Urine Glucose (UA) Neg mg/dL (Negative) 08/30/16 09:48 Urine Ketones 80 mg/dL (Negative) 08/30/16 09:48 Urine Blood Lg (Negative) 08/30/16 09:48 Urine Nitrite Neg (Negative) 08/30/16 09:48 Urine Bilirubin Neg (Negative) 08/30/16 09:48 Urine Urobilinogen 4.0 mg/dL (<2.0) 08/30/16 09:48 Ur Leukocyte Esterase Tr (Negative) 08/30/16 09:48 Urine WBC (Auto) 31.0 /HPF (0.0-6.0) H 08/30/16 09:48 Urine RBC (Auto) 77.0 /HPF (0.0-6.0) 08/30/16 09:48 U Epithel Cells (Auto) 10.0 /HPF (0-13.0) 08/30/16 09:48 Urine Bacteria (Auto) 1+ /HPF (Negative) 08/30/16 09:48 Urine Mucus Few /HPF 12/28/16 09:48 - Imaging and Cardiology Chest x-ray: image reviewed (pulmonary infiltrates have resolved)
--- NOTE | 2016-09-01 14:09 | Event Note ---
Date: 09/01/16 The patient as demonstrated significant clinical improvement, no longer short of breath. In addition, chest x-ray today, shows near complete resolution of her bilateral patchy infiltrates on presentation 2 days ago. Quick resolution will suggest diagnosis of acute pulmonary edema. Echocardiogram shows well-preserved left ventricle systolic function, ejection fraction 55%. On this presentation, small systolic blood pressure has been 160- 170. It is therefore unclear if the pulmonary edema was cardiogenic or otherwise. Recommendations: Continued treatment with diuretics, and optimal blood pressure management. We'll get a thallium stress test tomorrow morning for ischemic assessment. It is already noted that the patient does not plan breast feeding, and she is aware of thallium testing in the contraindication to breast feeding.
--- NOTE | 2016-09-01 14:59 | Progress Note ---
Assessment and Plan Acute pulmonary edema. Echo suspicious for noncardiogenic etiology cardiomyopathy. Not clearly supported by echo findings ?? Recommendations: Gentle diuretics Nasal cannula oxygen 2 L Ambulate patient as tolerated His cardiac perfusion testing fails to show any evidence of ischemia, I think narcotic related pulmonary edema will be one consideration. This in view of rapid turnaround time of pulmonary infiltrates. Aspiration would be another consideration although I would expect his process x-ray infiltrates to be slower recovery Monitor for vomiting and maintain aspiration precautions Subjective Date of service: 09/01/16 Principal diagnosis: acute pulmonary edema, suspect r/o cardiomyopathy Interval history: The patient reports loose cough with slight frothy sputum yesterday. Still some cough, clearing up. No fever noted. No vomiting. Still taking Percocet for pain Objective Vital Signs - 12hr 09/01/16 09/01/16 09/01/16 05:38 07:04 08:44 Temperature 98.2 F Pulse Rate 90 Pulse Rate [ 84 Apical] Pulse Rate [ Left] Respiratory 20 18 Rate Blood Pressure 127/81 [Left Arm] O2 Sat by Pulse 97 Oximetry 09/01/16 09/01/16 09/01/16 10:00 10:10 11:06 Temperature 98.3 F Pulse Rate Pulse Rate [ Apical] Pulse Rate [ 103 H Left] Respiratory 18 18 Rate Blood Pressure 119/75 [Left Arm] O2 Sat by Pulse 96 96 Oximetry 09/01/16 12:26 Temperature 97.8 F Pulse Rate Pulse Rate [ Apical] Pulse Rate [ 87 Left] Respiratory 18 Rate Blood Pressure 118/73 [Left Arm] O2 Sat by Pulse 95 Oximetry Constitutional: no acute distress, alert Eyes: non-icteric ENT: oropharynx moist Neck: supple Effort: normal Ascultation: Bilateral: clear Cardiovascular: regular rate and rhythm, other (no murmur) Gastrointestinal: normoactive bowel sounds, non-distended Extremities: edema (+3 bilateral Homans is negative bilaterally) Neurologic: normal mental status, non-focal exam Psychiatric: mood appropriate, affect normal CBC and BMP: 08/30/16 08:43 08/31/16 07:05 ABG, PT/INR, D-dimer: PT/INR, D-dimer D-Dimer 1974.70 ng/mlDDU (0-234) H 08/30/16 09:26 Abnormal lab findings: Abnormal Labs 08/31/16 07:05 Potassium 3.2 L Chloride 97.5 L Chest x-ray: report reviewed Additional Studies: Echocardiogram report noted with ejection fraction 55% and what appears to be a preserved left ventricular function. See reports
[2016-09-02] MEDS: LASIX IV SCH ×2 (06:01→17:51)
[2016-09-02 06:57] LABS: BUN/Creatinine Ratio 23.63; Blood Urea Nitrogen 26 mg/dL (7-17); Carbon Dioxide 29 mmol/L (22-30); Chloride 100.3 mmol/L (98-107); Glucose 100 mg/dL (65-100); Potassium 4.2 mmol/L (3.6-5.0); Sodium 143 mmol/L (137-145)
[2016-09-02 07:14] LABS: Anion Gap 18 mmol/L
[2016-09-02] MEDS: PERCOCET 5/325 PO PRN (07:53)
[2016-09-02] MEDS: ZESTRIL PO SCH (11:10)
[2016-09-02] MEDS: K-DUR PO SCH (11:10)
[2016-09-02] MEDS: PRENATAL VITAMIN PO SCH (11:10)
[2016-09-02] MEDS: LOVENOX SUB-Q SCH (11:11)
--- NOTE | 2016-09-02 12:21 | Progress Note ---
Assessment and Plan Assessment and plan: This is a 35-year-old woman who presented with shortness of breath and bipedal edema. She was found to have pulmonary infiltrates consistent with CHF. After a few days of diuresis repeat chest x-ray shows complete resolution of pulmonary infiltrates consistent with fluid overload. Of note echocardiogram shows preserved EF with some diastolic dysfunction. fluid overload is most likely due to diastolic dysfunction-CHF 1. post Cardiomyopathy, diastolic CHF Admit to tele, strict Is and Os, daily weights cardiology input appreciated IV diuresis, optimize meds, for stress test today 2. Accelerated htn continue BRANDON-I, beta aravind added now well controlled 3. DVT ppx lovenox 4. Hypokalemia resolved with repletion History Interval history: SOB is improved as is pedal edema Hospitalist Physical - Physical exam Narrative exam: General appearance: Present: no acute distress, well-nourished - EENT Eyes: Present: PERRL ENT: hearing intact, clear oral mucosa - Neck Neck: Present: supple, normal ROM - Respiratory Clear to auscultation - Cardiovascular Heart Sounds: Present: S1 & S2. Absent: rub, click - Extremities 1+ bipedal edema, interval improvement - Abdominal General gastrointestinal: Present: soft, non-tender, non-distended, normal bowel sounds Male genitourinary: Present: normal - Integumentary Integumentary: Present: clear, warm, dry - Musculoskeletal Musculoskeletal: gait normal, strength equal bilaterally - Psychiatric Psychiatric: appropriate mood/affect, intact judgment & insight - Neurologic Neurologic: CNII-XII intact, moves all extremities - Constitutional Vitals: Temp Pulse Resp BP Pulse Ox 97.7 F 80 18 109/68 99 09/02/16 08:00 09/02/16 10:00 09/02/16 10:00 09/02/16 08:00 09/02/16 10:20 General appearance: Present: no acute distress, well-nourished Results - Labs CBC & Chem 7: 08/30/16 08:43 09/02/16 06:20 Labs: Laboratory Last Values WBC 10.2 K/mm3 (4.5-11.0) 08/30/16 08:43 RBC 3.92 M/mm3 (3.65-5.03) 08/30/16 08:43 Hgb 12.3 gm/dl (10.1-14.3) 08/30/16 08:43 Hct 36.3 % (30.3-42.9) 08/30/16 08:43 MCV 93 fl (79-97) 08/30/16 08:43 MCH 31 pg (28-32) 08/30/16 08:43 MCHC 34 % (30-34) 08/30/16 08:43 RDW 13.6 % (13.2-15.2) 08/30/16 08:43 Plt Count 275 K/mm3 (140-440) 08/30/16 08:43 Lymph % (Auto) 12.2 % (13.4-35.0) L 08/30/16 08:43 [place] % (Auto) 4.4 % (0.0-7.3) 08/30/16 08:43 Eos % (Auto) 5.3 % (0.0-4.3) H 08/30/16 08:43 Baso % (Auto) 0.5 % (0.0-1.8) 08/30/16 08:43 Lymph # 1.2 K/mm3 (1.2-5.4) 08/30/16 08:43 [place] # 0.4 K/mm3 (0.0-0.8) 08/30/16 08:43 Eos # 0.5 K/mm3 (0.0-0.4) H 08/30/16 08:43 Baso # 0.0 K/mm3 (0.0-0.1) 08/30/16 08:43 Seg Neutrophils % 77.6 % (40.0-70.0) H 08/30/16 08:43 Seg Neutrophils # 7.9 K/mm3 (1.8-7.7) H 08/30/16 08:43 D-Dimer 1974.70 ng/mlDDU (0-234) H 08/30/16 09:26 Sodium 143 mmol/L (137-145) 09/02/16 06:20 Potassium 4.2 mmol/L (3.6-5.0) D 09/02/16 06:20 Chloride 100.3 mmol/L (98-107) 09/02/16 06:20 Carbon Dioxide 29 mmol/L (22-30) 09/02/16 06:20 Anion Gap 18 mmol/L 09/02/16 06:20 BUN 26 mg/dL (7-17) H 09/02/16 06:20 Creatinine 1.1 mg/dL (0.7-1.2) 09/02/16 06:20 Estimated GFR > 60 ml/min 09/02/16 06:20 BUN/Creatinine Ratio 23.63 % 09/02/16 06:20 Glucose 100 mg/dL (65-100) 09/02/16 06:20 Calcium 9.0 mg/dL (8.4-10.2) 09/02/16 06:20 Troponin T < 0.010 ng/mL (0.00-0.029) 08/30/16 08:43 NT-Pro-B Natriuret Pep 1140 pg/mL (0-450) H 08/30/16 09:26 Urine Color Yellow (Yellow) 08/30/16 09:48 Urine Turbidity Clear (Clear) 08/30/16 09:48 Urine pH 5.0 (5.0-7.0) 08/30/16 09:48 Ur Specific [place] 1.020 (1.003-1.030) 08/30/16 09:48 Urine Protein 100 mg/dl mg/dL (Negative) 08/30/16 09:48 Urine Glucose (UA) Neg mg/dL (Negative) 08/30/16 09:48 Urine Ketones 80 mg/dL (Negative) 08/30/16 09:48 Urine Blood Lg (Negative) 08/30/16 09:48 Urine Nitrite Neg (Negative) 08/30/16 09:48 Urine Bilirubin Neg (Negative) 08/30/16 09:48 Urine Urobilinogen 4.0 mg/dL (<2.0) 08/30/16 09:48 Ur Leukocyte Esterase Tr (Negative) 08/30/16 09:48 Urine WBC (Auto) 31.0 /HPF (0.0-6.0) H 08/30/16 09:48 Urine RBC (Auto) 77.0 /HPF (0.0-6.0) 08/30/16 09:48 U Epithel Cells (Auto) 10.0 /HPF (0-13.0) 08/30/16 09:48 Urine Bacteria (Auto) 1+ /HPF (Negative) 08/30/16 09:48 Urine Mucus Few /HPF 08/30/16 09:48
--- NOTE | 2016-09-02 12:24 | Progress Note ---
Assessment and Plan - Patient Problems (1) Pulmonary edema cardiac cause Current Visit: Yes Status: Acute Subjective Principal diagnosis: acute pulmonary edema, suspect r/o cardiomyopathy Interval history: no complaints Objective Vital Signs - 12hr 09/02/16 09/02/16 09/02/16 05:04 07:53 08:00 Temperature 98 F 97.7 F Pulse Rate Pulse Rate [ 89 Apical] Pulse Rate [ 84 Left] Respiratory 20 20 18 Rate Respiratory Rate [Chest] Blood Pressure 130/66 109/68 [Left Arm] O2 Sat by Pulse 98 96 Oximetry 09/02/16 09/02/16 10:00 10:20 Temperature Pulse Rate 80 Pulse Rate [ Apical] Pulse Rate [ Left] Respiratory Rate Respiratory 18 Rate [Chest] Blood Pressure [Left Arm] O2 Sat by Pulse 99 Oximetry Constitutional: no acute distress, alert Eyes: non-icteric ENT: oropharynx moist Neck: supple Effort: normal Ascultation: Bilateral: rales (bilateral lower bases no wheezes occasional anterior crackles) Cardiovascular: regular rate and rhythm, other (no murmur) Gastrointestinal: normoactive bowel sounds, non-distended Extremities: edema (+3 bilateral Homans is negative bilaterally) Neurologic: normal mental status, non-focal exam Psychiatric: mood appropriate, affect normal CBC and BMP: 08/30/16 08:43 09/02/16 06:20 ABG, PT/INR, D-dimer: PT/INR, D-dimer D-Dimer 1974.70 ng/mlDDU (0-234) H 08/30/16 09:26 Abnormal lab findings: Abnormal Labs 08/31/16 09/02/16 07:05 06:20 Potassium 3.2 L Chloride 97.5 L BUN 26 H
--- NOTE | 2016-09-02 13:06 | Progress Note ---
Assessment and Plan 1. Acute systolic heart failure resolved normal LV ejection fraction of 50-60% by echocardiogram 2. Status post recent childbirth The patient as demonstrated significant clinical improvement, no longer short of breath. In addition, chest x-ray , shows resolution of her bilateral patchy infiltrates . c/w acute pulmonary edema likely from fluid overload Echocardiogram shows well-preserved left ventricle systolic function, ejection fraction 55%. On this presentation, small systolic blood pressure has been 160- 170. It is therefore unclear if the pulmonary edema was cardiogenic or otherwise. Recommendations: Continued treatment with diuretics, and optimal blood pressure management. Subjective Date of service: 09/02/16 Principal diagnosis: acute pulmonary edema, suspect r/o cardiomyopathy Interval history: No cardiac symptoms. Objective Vital Signs Temp Pulse Pulse Pulse Resp Resp BP 09/02/16 12:40 98.1 F 81 16 121/67 09/02/16 10:20 09/02/16 10:00 80 18 09/02/16 08:00 97.7 F 89 18 109/68 09/02/16 07:53 20 09/02/16 05:04 98 F 84 20 130/66 09/02/16 00:00 97.7 F 87 21 123/64 09/01/16 20:00 98.7 F 91 H 20 119/69 09/01/16 18:00 90 09/01/16 17:12 97.5 F L 92 H 18 128/66 Pulse Ox 09/02/16 12:40 09/02/16 10:20 99 09/02/16 10:00 09/02/16 08:00 96 09/02/16 07:53 09/02/16 05:04 98 09/02/16 00:00 100 09/01/16 20:00 95 09/01/16 18:00 09/01/16 17:12 98 - Physical Examination General: No Apparent Distress HEENT: Positive: PERRL Neck: Positive: trachea midline Cardiac: Positive: Regular Rate, S1/S2. Negative: S3, S4 Lungs: Positive: clear to auscultation, No Wheeze, Rales, Rhonchi Neuro: Positive: Grossly Intact Abdomen: Positive: Unremarkable, Soft, Active Bowel Sounds Skin: Positive: Clear Extremities: Absent: edema - Labs and Meds Comprehensive Metabolic Panel 09/02/16 Range/Units 06:20 Sodium 143 (137-145) mmol/L Potassium 4.2 D (3.6-5.0) mmol/L Chloride 100.3 (98-107) mmol/L Carbon Dioxide 29 (22-30) mmol/L BUN 26 H (7-17) mg/dL Creatinine 1.1 (0.7-1.2) mg/dL Glucose 100 (65-100) mg/dL Calcium 9.0 (8.4-10.2) mg/dL
[2016-09-02] MEDS: COREG PO SCH (22:07)
[2016-09-03 09:10] LABS: Anion Gap 18 mmol/L; Blood Urea Nitrogen 22 mg/dL (7-17); Carbon Dioxide 28 mmol/L (22-30); Chloride 98.1 mmol/L (98-107); Glucose 83 mg/dL (65-100); Potassium 4.7 mmol/L (3.6-5.0); Sodium 139 mmol/L (137-145)
[2016-09-03] MEDS: K-DUR PO SCH (09:20)
[2016-09-03] MEDS: PERCOCET 5/325 PO PRN (09:20)
[2016-09-03] MEDS: COREG PO SCH (09:20)
[2016-09-03] MEDS: ZESTRIL PO SCH (09:21)
[2016-09-03] MEDS: PRENATAL VITAMIN PO SCH (09:21)
--- NOTE | 2016-09-03 12:28 | Progress Note ---
Assessment and Plan 1. Acute pulmonary edema resolved likely secondary to fluid overload. 2. Status post recent childbirth. Plan. Patient is stable at sheet pulmonary edema likely secondary to acute mobilization of excess fluid of into the central system. She has responded to diuresis and echo shows his LV ejection fraction. We'll recommend discharging patient at this time for the wall, as an outpatient follow-up with Dr. Pickett Subjective Date of service: 09/03/16 Principal diagnosis: Acute pulmonary edema Interval history: No cardiac symptoms. Objective Vital Signs Temp Pulse Pulse Pulse Resp Resp BP 09/03/16 10:00 97.5 F L 76 18 108/57 09/03/16 09:20 10 L 09/03/16 06:35 98.2 F 88 16 110/55 09/03/16 02:26 98.4 F 76 20 114/66 09/02/16 21:00 98.6 F 82 20 119/66 09/02/16 20:53 88 18 09/02/16 18:00 87 09/02/16 16:30 98.5 F 79 18 124/73 09/02/16 12:40 98.1 F 81 16 121/67 Pulse Ox 09/03/16 10:00 97 09/03/16 09:20 09/03/16 06:35 09/03/16 02:26 09/02/16 21:00 94 09/02/16 20:53 09/02/16 18:00 09/02/16 16:30 97 09/02/16 12:40 - Physical Examination General: No Apparent Distress HEENT: Positive: PERRL Neck: Positive: trachea midline Cardiac: Positive: Regular Rate, Regular Rhythm. Negative: S3, S4 Lungs: Positive: clear to auscultation, No Wheeze, Rales, Rhonchi Neuro: Positive: Grossly Intact Abdomen: Positive: Unremarkable, Soft, Active Bowel Sounds Skin: Positive: Clear Extremities: Absent: edema - Labs and Meds Comprehensive Metabolic Panel 09/03/16 Range/Units 08:23 Sodium 139 (137-145) mmol/L Potassium 4.7 (3.6-5.0) mmol/L Chloride 98.1 (98-107) mmol/L Carbon Dioxide 28 (22-30) mmol/L BUN 22 H (7-17) mg/dL Creatinine 1.0 (0.7-1.2) mg/dL Glucose 83 (65-100) mg/dL Calcium 9.0 (8.4-10.2) mg/dL
[2016-09-03 13:24] VITALS: BP 129/68
--- NOTE | 2016-09-03 13:34 | Discharge Summary ---
Providers - Providers Date of Admission: 08/30/16 11:30 Date of discharge: 09/03/16 Attending physician: CIERRA ELIZONDO MD 08/31/16 15:18 Consult to Physician [CONS] Routine Consulting Provider: MAXX BOOKER Reason For Exam: Pneumonia vs Pulmonary edema on cxr Place consult to:: Dr. Booker Notified:: Mayelin OROZCO Phone number called:: Was contact made?: Yes If yes, spoke with:: Miriam-Office Time called:: 15:58 Primary care physician: DIRECTOR OF STRATEGIC INITIATIVES Hospitalization Reason for admission: pulmonary edema Condition: Stable Hospital course: Acute pulmonary edema resolved likely secondary to fluid overload secondary to recent childbirth Patient is stable at this time, pulmonary edema likely secondary to acute mobilization of excess fluid of into the central system. She has responded to diuresis and echo shows 55-60% LV ejection fraction, LV consistent with impaired relaxation. Patient needs follow-up with Dr. Pickett as an outpatient. Disposition: DISCHARGED TO HOME OR SELFCARE Time spent for discharge: 31 minutes - Discharge Diagnoses (1) cardiomyopathy Status: Acute (2) Pulmonary edema cardiac cause Status: Acute Core Measure Documentation - Palliative Care Palliative Care/ Comfort Measures: Not Applicable - Core Measures Any of the following diagnoses?: none Exam - Physical Exam Narrative exam: Not in cardiopulmonary distress. The patient appeared well nourished and normally developed. Vital signs as documented. Head exam is unremarkable. No scleral icterus . Neck is without jugular venous distension, thyromegaly, or carotid bruits. Lungs are clear to auscultation. Cardiac exam reveals regular rate and Rhythm. First and second heart sounds normal. No murmurs, rubs or gallops. Abdominal exam reveals normal bowel sounds, no masses, no organomegaly and no aortic enlargement. Extremities are nonedematous and both femoral and pedal pulses are normal. GIRL FRIDAY: Alert and oriented 3. No focal weakness. - Constitutional Vitals: Temp Pulse Resp BP Pulse Ox 97.6 F 69 18 129/68 97 09/03/16 12:00 09/03/16 12:00 09/03/16 12:00 09/03/16 12:09/03/16 10:00 Plan Activity: no restrictions Diet: low cholesterol, low salt Follow up with: PRIMARY MD JOAO [Primary Care Provider] - 3-5 Days Forms: AMA Form Prescriptions: RX: Carvedilol [Coreg] 3.125 mg PO BID #60 tablet Furosemide [Lasix TAB] 40 mg PO QDAY #30 tablet RX: oxyCODONE /ACETAMINOPHEN [Percocet 5/325 mg] 1 - 2 tab PO Q4HR PRN #30 tablet PRN Reason: Pain RX: Lisinopril [Zestril TAB] 20 mg PO QDAY #30 tablet
--- NOTE | 2016-09-07 07:47 | Vascular Lab Report ---
LOWER EXTREMITY VENOUS DUPLEX: REASON FOR EXAM: Edema. COMMENTS ON THE RIGHT: All veins visualized are freely compressible without evidence of internal echogenicity. Flow is spontaneous and phasic throughout. COMMENTS ON THE LEFT: All veins visualized are freely compressible without evidence of internal echogenicity. Flow is spontaneous and phasic throughout. IMPRESSION: No evidence of acute or chronic deep venous thrombosis in either lower extremity.
--- NOTE | 2016-09-07 10:05 | Query- Cardiomyopathy ---
Deayeimi Championuigbugo Date:_09/07/16 Mold Repair Technician/CDS:Leora Brink Phone#:_[phone] Exercise your independent professional judgment when responding to this query. Questions asked do not imply a particular answer is desired or expected. We greatly appreciate your clarification on this issue. Clinical Documentation States: 35 Y/O Female admitted on 08/30/16 with remote hx of Hep. B and recent delivery via a week ago presents with 7 days of pedal edema, 4 days of progressive SOB in form of NICHOLS and Orthopnea. Denies Chest Pain, gets winded with minimal exertion. H&P states: Post Cardiomyopathy Clinical Findings Show (include reference to source document: ECHO: Moderate concentric LVH, Abnormal left ventricular diastolic filling, consistent with impaired relaxation Please Clarify the Severity and Etiology of the stated condition: [ ] Primary Cardiomyopathy [ ] Idiopathic Cardiomyopathy [ ] Secondary Cardiomyopathies [ ] Toxic Cardiomyopathy [ ] Dilated Cardiomyopathy [ ] [place] Cardiomyopathy [ ] Restrictive Cardiomyopathy [ ] Hypertrophic Cardiomyopathy [ x] Other: diastolic dysfunction____ [ ] Comment/Explanation: Cardiomyopathy is: [ ] Pre-existing [ x] induced Present on Admission: [x ] Yes (Y) [ ] Clinically undeterminable (W) [ ] No (N) Please also document response in your Progress Notes and/or Discharge Summary and indicate if the condition was present on admission. MTDD
== END 2016-09-03 15:45 | disposition home or self-care (01) | DRG 776 ==
LOC: ED 07:55 → 4A 11:30
PROVIDERS: ADMIT Internal Medicine; ATTEND Internal Medicine
DX: O90.3 Peripartum cardiomyopathy (principal); O90.89 Other complications of the puerperium, not elsewhere classified; E87.6 Hypokalemia; O16.5 Unspecified maternal hypertension, complicating the puerperium
CPT/HCPCS: 36415; 71020; 80048; 81001; 83880; 84484; 85025; 85379; 93005; 93010; 93306; 93970; 94760; 99285; J1650; J1940

== ENCOUNTER 2017-09-24 23:22 | Emergency (ER) | payer MEDICAID ==
[2017-09-25] MEDS ORDERED: MOTRIN PO ONE (07:23)
--- NOTE | 2017-09-25 07:28 | Emergency Department Report ---
- General Chief Complaint: Upper Respiratory Infection Stated Complaint: COLD SX Time Seen by Provider: 09/25/17 07:12 Source: patient Mode of arrival: Ambulatory Limitations: No Limitations - History of Present Illness Initial Comments: This is a 37-year-old female nontoxic, well nourished in appearance, no acute signs of distress presents to the ED with c/o of productive cough, body aches, fever, chills, rhinorrhea, and nasal congestion 2 days. Patient describes productive cough as yellow/green mucus production. Patient denies any recent travels, long car rides, recent hospital stays. Patient denies any calf pain or calf tenderness. Denies any hemoptysis. Patient denies chest pain, shortness of breath, fever, chills, nausea, vomiting, headache, stiff neck, numbness, tingling. Patient denies any allergies or PMH. MD Complaint: fever, cough, rhinorrhea, nasal congestion -: days(s) (2) Severity: mild Severity scale (0 -10): 8 Quality: aching Consistency: constant Improves With: nothing Worsens With: nothing Associated Symptoms: fever, chills, rhinorrhea, nasal congestion, cough. denies : myalgias, diaphoresis, headache, sore throat, stiff neck, chest pain, shortness of breath, abdominal pain, nausea, vomiting, diarrhea, dysuria, rash, confusion, right sweats, weight loss, epistaxis, hoarseness, ear pain Treatments Prior to Arrival: none - Related Data Home Medications Medication Instructions Recorded Confirmed Last Taken Vit-Fe Fumar-FA [ 1 tab PO QDAY 08/20/16 08/30/16 Unknown Vitamin] Previous Rx's Medication Instructions Recorded Last Taken Type Ibuprofen [Motrin 800 MG tab] 800 mg PO TID PRN #30 tablet 08/20/16 Unknown Rx Carvedilol [Coreg] 3.125 mg PO BID #60 tablet 09/02/16 Unknown Rx Lisinopril [Zestril TAB] 20 mg PO QDAY #30 tablet 09/02/16 Unknown Rx oxyCODONE /ACETAMINOPHEN [Percocet 1 - 2 tab PO Q4HR PRN #30 tablet 09/02/16 Unknown Rx 5/325 mg] Furosemide [Lasix TAB] 40 mg PO QDAY #30 tablet 09/03/16 Unknown Rx Azithromycin [Zithromax Z-SAMANTHA] 250 mg PO DAILY #6 tablet 09/25/17 Unknown Rx Benzonatate [Tessalon Perle] 100 mg PO Q8H PRN #20 capsule 09/25/17 Unknown Rx Fluticasone [Flonase] 1 spray NS QDAY #1 bottle 09/25/17 Unknown Rx Allergies Allergy/AdvReac Type Severity Reaction Status Date / Time No Known Allergies Allergy Verified 08/13/16 19:22 ED Review of Systems ROS: Stated complaint: COLD SX Other details as noted in HPI Constitutional: chills, fever Eyes: denies: eye pain, eye discharge, vision change ENT: denies: ear pain, throat pain Respiratory: cough. denies: shortness of breath, wheezing Cardiovascular: denies: chest pain, palpitations Endocrine: no symptoms reported Gastrointestinal: denies: abdominal pain, nausea, diarrhea Genitourinary: denies: urgency, dysuria, discharge Musculoskeletal: denies: back pain, joint swelling, arthralgia Skin: denies: rash, lesions Neurological: denies: headache, weakness, paresthesias Psychiatric: denies: anxiety, depression Hematological/Lymphatic: denies: easy bleeding, easy bruising ED Past Medical Hx - Past Medical History Hx Hypertension: No Hx Congestive Heart Failure: No Hx Diabetes: No Hx Deep Vein Thrombosis: No Hx Renal Disease: No Hx Sickle Cell Disease: No Hx Seizures: No Hx Asthma: No Hx COPD: No Hx HIV: No Additional medical history: fluid retention - Surgical History Additional Surgical History: 08-20-16 - Social History Smoking Status: Never Smoker Substance Use Type: None - Medications Home Medications: Home Medications Medication Instructions Recorded Confirmed Last Taken Type Ibuprofen [Motrin 800 MG tab] 800 mg PO TID PRN #30 tablet 08/20/16 08/30/16 Unknown Rx Vit-Fe Fumar-FA [ 1 tab PO QDAY 08/20/16 08/30/16 Unknown History Vitamin] Carvedilol [Coreg] 3.125 mg PO BID #60 tablet 09/02/16 Unknown Rx Lisinopril [Zestril TAB] 20 mg PO QDAY #30 tablet 09/02/16 Unknown Rx oxyCODONE /ACETAMINOPHEN [Percocet 1 - 2 tab PO Q4HR PRN #30 tablet 09/02/16 Unknown Rx 5/325 mg] Furosemide [Lasix TAB] 40 mg PO QDAY #30 tablet 09/03/16 Unknown Rx Azithromycin [Zithromax Z-SAMANTHA] 250 mg PO DAILY #6 tablet 09/25/17 Unknown Rx Benzonatate [Tessalon Perle] 100 mg PO Q8H PRN #20 capsule 09/25/17 Unknown Rx Fluticasone [Flonase] 1 spray NS QDAY #1 bottle 09/25/17 Unknown Rx ED Physical Exam - General Limitations: No Limitations General appearance: alert, in no apparent distress - Head Head exam: Present: atraumatic, normocephalic, normal inspection - Eye Eye exam: Present: normal appearance, PERRL, EOMI. Absent: scleral icterus, conjunctival injection, nystagmus, periorbital swelling, periorbital tenderness Pupils: Present: normal accommodation - ENT ENT exam: Present: normal exam, normal orophraynx, mucous membranes moist, TM's normal bilaterally, normal external ear exam - Neck Neck exam: Present: normal inspection, full ROM. Absent: tenderness, meningismus, lymphadenopathy, thyromegaly - Respiratory Respiratory exam: Present: normal lung sounds bilaterally. Absent: respiratory distress, wheezes, rales, rhonchi, stridor, chest wall tenderness, accessory muscle use, decreased breath sounds, prolonged expiratory - Cardiovascular Cardiovascular Exam: Present: regular rate, normal rhythm, tachycardia, normal heart sounds. Absent: irregular rhythm, systolic murmur, diastolic murmur, rubs , gallop - GI/Abdominal GI/Abdominal exam: Present: soft, normal bowel sounds. Absent: distended, tenderness, guarding, rebound, rigid, diminished bowel sounds - Rectal Rectal exam: Present: deferred - Extremities Exam Extremities exam: Present: normal inspection, full ROM, normal capillary refill. Absent: tenderness, pedal edema, joint swelling, calf tenderness - Back Exam Back exam: Present: normal inspection, full ROM. Absent: tenderness, CVA tenderness (R), CVA tenderness (L), muscle spasm, paraspinal tenderness, vertebral tenderness, rash noted - Neurological Exam Neurological exam: Present: alert, oriented X3, CN II-XII intact, normal gait, reflexes normal - Psychiatric Psychiatric exam: Present: normal affect, normal mood - Skin Skin exam: Present: warm, dry, intact, normal color. Absent: rash ED Course Vital Signs 09/25/17 00:13 Temperature 100 F H Pulse Rate 109 H Respiratory 20 Rate Blood Pressure 114/69 O2 Sat by Pulse 98 Oximetry - Reevaluation(s) Reevaluation #1: 09/25/17 07:29 Patient is speaking in full sentences with no signs of distress noted. ED Medical Decision Making - Medical Decision Making This is a 37-year-old female that presents with upper respiratory infection. Patient is stable and was examined by me. Chest x-ray has been obtained and dictated by radiologist within normal limits. Patient notified of x-ray results with no plates noted by the patient. Influenza swab negative. Patient received Motrin and Tessalon Perles in the ED. Vital signs stable prior to discharge. Patient is afebrile. Normal heart rate. I'll treat patient empirically with azithromycin at discharge due to patient stating symptoms are worsening. Patient was rehydrated in the ER and patient tolerated well with no signs of nasuea or vomiting. Patient was instructed Follow-up with a primary care doctor in 3-5 days or if symptoms worsen and continue return to emergency room as soon as possible. At time time of discharge, the patient does not seem toxic or ill in appearance. No acute signs of distress noted. Patient agrees to discharge treatment plan of care. No further questions noted by the patient. Critical care attestation.: If time is entered above; I have spent that time in minutes in the direct care of this critically ill patient, excluding procedure time. ED Disposition Clinical Impression: Upper respiratory infection Qualifiers: URI type: unspecified URI Qualified Code(s): J06.9 - Acute upper respiratory infection, unspecified Disposition: - TO HOME OR SELFCARE Is pt being admited?: No Does the pt Need Aspirin: No Condition: Stable Instructions: Benzonatate (By mouth), Azithromycin (By mouth), Fluticasone ( Into the nose), Upper Respiratory Infection (ED) Additional Instructions: Follow-up with a primary care doctor in 3-5 days or if symptoms worsen and continue return to emergency room as soon as possible. Prescriptions: Azithromycin [Zithromax Z-SAMANTHA] 250 mg PO DAILY #6 tablet Benzonatate [Tessalon Perle] 100 mg PO Q8H PRN #20 capsule PRN Reason: Cough Fluticasone [Flonase] 1 spray NS QDAY #1 bottle Referrals: PRIMARY CARE,MD [Primary Care Provider] - 3-5 Days AGA YBARRA MD [Staff Physician] - 3-5 Days [facility] [Outside] - 3-5 Days [facility] [Outside] - 3-5 Days Forms: Work/School Release Form(ED)
--- NOTE | 2017-09-25 07:39 | XRay Report ---
ROUTINE CHEST, TWO VIEWS: HISTORY: Cough. The trachea, heart, mediastinal contour, lung paulson and bony thorax are unremarkable. No significant change since 09/01/16. IMPRESSION: Unremarkable chest x-ray.
[2017-09-25 08:49] VITALS: BP 117/72
== END 2017-09-25 09:02 | disposition home or self-care (01) ==
LOC: ED 23:22
DX: J06.9 Acute upper respiratory infection, unspecified (principal)
CPT/HCPCS: 71046; 87400; 99283

== ENCOUNTER 2021-04-14 03:42 | Emergency (ER) | payer BC ==
[2021-04-14 03:50] VITALS: BP 114/70
--- NOTE | 2021-04-14 08:56 | Emergency Department Report ---
ED General Adult HPI - General Chief complaint: Fever Stated complaint: FEVER Time Seen by Provider: 04/14/21 07:56 Source: patient Mode of arrival: Ambulatory Limitations: No Limitations - History of Present Illness Initial comments: 40-year-old -Malays[place] female patient presents with complaints of feeling hot and dehydrated for the past 2 days. She states when she touches her skin it feels warm, but denies any chills/sweats, cough, shortness of breath, abdominal pain, chest pain, nausea/vomiting/diarrhea, or loss of taste or smell. No rece nt known sick contacts per patient. She denies any past medical history. She also denies any headache, neck pain, or numbness/tingling/weakness in her limbs. When asked why she feels dehydrated, she states because she has not been drinking enough water. No dysuria/hematuria/urinary frequency per patient. - Related Data Home Medications Medication Instructions Recorded Confirmed Last Taken Vit-Fe Fumar-FA [ 1 tab PO QDAY 08/20/16 08/30/16 Unknown Vitamin] Previous Rx's Medication Instructions Recorded Last Taken Type Ibuprofen [Motrin 800 MG tab] 800 mg PO TID PRN #30 tablet 08/20/16 Unknown Rx carvediloL [Coreg] 3.125 mg PO BID #60 tablet 09/02/16 Unknown Rx lisinopriL [Zestril TAB] 20 mg PO QDAY #30 tablet 09/02/16 Unknown Rx oxyCODONE /ACETAMINOPHEN [Percocet 1 - 2 tab PO Q4HR PRN #30 tablet 09/02/16 Unknown Rx 5/325 mg] Furosemide [Lasix TAB] 40 mg PO QDAY #30 tablet 09/03/16 Unknown Rx Azithromycin [Zithromax Z-SAMANTHA] 250 mg PO DAILY #6 tablet 09/25/17 Unknown Rx Benzonatate [Tessalon Perle] 100 mg PO Q8H PRN #20 capsule 09/25/17 Unknown Rx Fluticasone [Flonase] 1 spray NS QDAY #1 bottle 09/25/17 Unknown Rx Allergies Allergy/AdvReac Type Severity Reaction Status Date / Time No Known Allergies Allergy Verified 08/13/16 19:22 ED Review of Systems ROS: Stated complaint: FEVER Other details as noted in HPI Constitutional: see HPI. denies: chills, diaphoresis, malaise, weakness ENT: denies: ear pain Respiratory: denies: cough, shortness of breath Cardiovascular: denies: chest pain Gastrointestinal: denies: abdominal pain, nausea, vomiting Genitourinary: denies: urgency, dysuria, frequency, hematuria Skin: denies: rash, lesions, change in color Neurological: denies: headache, numbness, paresthesias, abnormal gait Hematological/Lymphatic: denies: swollen glands ED Past Medical Hx - Past Medical History Previous Medical History?: Yes Hx Hypertension: No Hx Congestive Heart Failure: No Hx Diabetes: No Hx Deep Vein Thrombosis: No Hx Renal Disease: No Hx Sickle Cell Disease: No Hx Seizures: No Hx Asthma: No Hx COPD: No Hx HIV: No Additional medical history: fluid retention - Surgical History Past Surgical History?: Yes Additional Surgical History: 08-20-16 - Social History Smoking Status: Never Smoker Substance Use Type: None - Medications Home Medications: Home Medications Medication Instructions Recorded Confirmed Last Taken Type Ibuprofen [Motrin 800 MG tab] 800 mg PO TID PRN #30 tablet 08/20/16 08/30/16 Un known Rx Vit-Fe Fumar-FA [ 1 tab PO QDAY 08/20/16 08/30/16 Unknown History Vitamin] carvediloL [Coreg] 3.125 mg PO BID #60 tablet 09/02/16 Unknown Rx lisinopriL [Zestril TAB] 20 mg PO QDAY #30 tablet 09/02/16 Unknown Rx oxyCODONE /ACETAMINOPHEN [Percocet 1 - 2 tab PO Q4HR PRN #30 tablet 09/02/16 Unknown Rx 5/325 mg] Furosemide [Lasix TAB] 40 mg PO QDAY #30 tablet 09/03/16 Unknown Rx Azithromycin [Zithromax Z-SAMANTHA] 250 mg PO DAILY #6 tablet 09/25/17 Unknown Rx Benzonatate [Tessalon Perle] 100 mg PO Q8H PRN #20 capsule 09/25/17 Unknown Rx Fluticasone [Flonase] 1 spray NS QDAY #1 bottle 09/25/17 Unknown Rx ED Physical Exam - General Limitations: No Limitations General appearance: alert, in no apparent distress - Head Head exam: Present: atraumatic, normocephalic - Eye Eye exam: Present: normal appearance. Absent: scleral icterus - Neck Neck exam: Present: normal inspection, full ROM - Respiratory Respiratory exam: Present: normal lung sounds bilaterally. Absent: respiratory distress - Cardiovascular Cardiovascular Exam: Present: regular rate, normal rhythm. Absent: systolic murmur, diastolic murmur, rubs, gallop - GI/Abdominal GI/Abdominal exam: Present: soft. Absent: tenderness - Neurological Exam Neurological exam: Present: alert, oriented X3, normal gait - Psychiatric Psychiatric exam: Present: normal affect, normal mood - Skin Skin exam: Present: warm, dry, intact, normal color. Absent: rash ED Course Vital Signs 04/14/21 03:49 Temperature 98.1 F Pulse Rate 107 H Respiratory 16 Rate Blood Pressure 114/70 O2 Sat by Pulse 98 Oximetry ED Medical Decision Making - Medical Decision Making 40-year-old -Mal[place] female patient presents with complaints of feeling hot and dehydrated for the past 2 days. She states when she touches her skin it feels warm, but denies any chills/sweats, cough, shortness of breath, abdominal pain, chest pain, nausea/vomiting/diarrhea, or loss of taste or smell. No recent known sick contacts per patient. She denies any past medical history. She also denies any headache, neck pain, or numbness/tingling/weakness in her limbs. When asked why she feels dehydrated, she states because she has not been drinking enough water. No dysuria/hematuria/urinary frequency per patient. No abnormalities noted on physical exam. Symptoms are nonspecific. No fever observed here in ED. Mildly elevated blood pressure noted, vitals are otherwise normal. Recommend patient get out patient Covid testing, facility testing list provided. Also recommend patient follows up with PCP in 3 to 5 days. She is well-appearing and stable for discharge home. Discussed in great detail signs and symptoms that should prompt immediate return to the emergency department with patient verbalizes understanding. Patient denies any further questions at this time and states she understands plan of care. Critical care attestation.: If time is entered above; I have spent that time in minutes in the direct care of this critically ill patient, excluding procedure time. ED Disposition Clinical Impression: Malaise Disposition: [id number] TO HOME OR SELFCARE Is pt being admited?: No Condition: Stable Instructions: Fatigue, Prevent the Spread of COVID-19 if You Are Sick - [facility] [place] Referrals: PRIMARY CARE, [Primary Care Provider] - 3-5 Days [facility] [Provider Group] - 3-5 Days Forms: Work/School Release Form(ED)
== END 2021-04-14 10:09 | disposition home or self-care (01) ==
LOC: ED 03:42
DX: R53.81 Other malaise (principal); Z79.899 Other long term (current) drug therapy; Z98.890 Other specified postprocedural states
CPT/HCPCS: 99281